=== PATIENT | female | born 2000 | race Two or more races ===

== ENCOUNTER 2024-01-13 01:27 | Inpatient (IN) | payer OTHER ==
[~2024-01-13] VITALS: Ht 162.6 cm; Wt 82.6 kg
[2024-01-13 02:11] LABS: AMNISURE ROM TEST NEGATIVE
[2024-01-13] MEDS ORDERED: OXYTOCIN/DEXTROSE 5% 20 UNITS/100 ML BAG IV SCH (03:00)
[2024-01-13] MEDS ORDERED: CALCIUM CARBONATE 500 MG CHEW PO PRN ×2 (03:00→06:30)
[2024-01-13] MEDS ORDERED: ondansetron HCL 4 MG/2 ML VIAL IV PRN (03:00)
[2024-01-13] MEDS ORDERED: LACTATED RINGER'S 1,000 ML IV PRN (03:00)
[2024-01-13] MEDS ORDERED: MAGNESIUM HYDROXIDE/AL HYDROX 30 ML CUP PO PRN ×2 (03:00→06:30)
[2024-01-13] MEDS ORDERED: LACTATED RINGER'S 1,000 ML IV SCH (03:00)
[2024-01-13 03:01] LABS: HEMATOCRIT 37.2 % (35.0-50.0); MCH 26.5 (27-36); MCHC 32.2 g/dl (30-36); MCV 82.5 fl (81-99); RBC 4.51 M/ul (4.3-5.7); RDW 15.8 (10.5-15.0)
[2024-01-13 03:22] VITALS: BP 143/90
[2024-01-13 03:36] LABS: ABO A; ANTIBODY SCREEN NEGATIVE; RH POSITIVE
[2024-01-13 03:58] LABS: AMPHETAMINES, URINE NEGATIVE (NEGATIVE); BARBITURATES, URINE NEGATIVE (NEGATIVE); BENZODIAZEPINE, URINE NEGATIVE (NEGATIVE); BUPRENORPHINE, URINE NEGATIVE (NEGATIVE); CANNABINOID, URINE NEGATIVE (NEGATIVE); COCAINE, URINE NEGATIVE (NEGATIVE); ECSTASY, URINE NEGATIVE (NEGATIVE); FENTANYL, URINE NEGATIVE (NEGATIVE); METHADONE, URINE NEGATIVE (NEGATIVE); OPIATES, URINE NEGATIVE (NEGATIVE); OXYCODONE, URINE NEGATIVE (NEGATIVE); PHENCYCLIDINE, URINE NEGATIVE (NEGATIVE)
--- NOTE | 2024-01-13 05:40 | PR ---
[facility] [address] [facility] [place], [place] [address] Signed Progress Notes IP Datetime Report Generated by CPLyndsey: 01/13/2024 05:40 PROGRESS NOTES: [id number] Impression: Normal Progression of Labor Procedures: Artificial ROM Plan: Continue Present Management VITAL SIGNS: [id number] Vital Signs: Reviewed; Within Normal Limits EXAM: [id number] Dilatation: 8.0 Effacement: 100 Station: -1 Contractions: q 1 to 2 min MEMBRANES: [id number] Comments: Progressing. AROM done and will continue. FETUS A: [id number] FHR Baseline: 140 Variability: Moderate 6-25bpm Accelerations: 15X15 Decelerations: None FHR Category: Category I Presentation: Vertex Comments on Fetus A: no evidence of metabolic acidosis FETUS B: [id number] Signing Physician: Helena Moran MD Copies: ~ *Electronically Signed* 01/13/24 0540 HELENA MORAN MD PATIENT NAME: SUZANNA SCHWARZ PROGRESS NOTE DATE OF : 01 PHYSICIAN: HELNEA MORAN MD RPT #: [id number] REPORT IS CONFIDENTIAL AND NOT TO BE RELEASED WITHOUT AUTHORIZATION
[2024-01-13] MEDS ORDERED: ACETAMINOPHEN 325 MG TAB PO PRN (06:30)
[2024-01-13] MEDS ORDERED: IBUPROFEN 600 MG TAB PO PRN (06:30)
[2024-01-13] MEDS ORDERED: BENZOCAINE 60 ML AEROSOL TOP PRN (06:30)
[2024-01-13] MEDS ORDERED: HYDROCORTISONE ACETATE 25 MG SUPP PR PRN (06:30)
[2024-01-13] MEDS ORDERED: WITCH HAZEL/GLYCERIN 1 EA PAD TOP PRN (06:30)
[2024-01-13] MEDS ORDERED: MAGNESIUM HYDROXIDE 30 ML UDC PO PRN (06:30)
[2024-01-13] MEDS ORDERED: HYDROCODONE/ACETA 5/325 TAB PO PRN (06:30)
[2024-01-13] MEDS ORDERED: LIDOCAINE 2% VISCOUS 6 ML SYR TOP ONE ×2 (06:30)
[2024-01-13] MEDS ORDERED: OXYTOCIN/0.9 % SODIUM CHLORIDE 500 ML IV SCH (06:30)
[2024-01-13] MEDS ORDERED: SENNOSIDES/DOCUSATE 1 EA TAB PO SCH (09:00)
[2024-01-14 05:22] LABS: HEMATOCRIT 28.2 % (35.0-50.0); HEMOGLOBIN 9.2 g/dL (12.0-18.0); MCHC 32.5 g/dl (30-36); MCV 82.9 fl (81-99); RBC 3.4 M/ul (4.3-5.7); RDW 15.8 (10.5-15.0)
--- NOTE | 2024-01-14 06:39 | PR ---
[facility] [address] [facility] [place], [place] [address] Signed PP Progress Notes Datetime Report Generated by CPN: 01/14/2024 06:38 SUBJECTIVE: [id number] Pain: Within Normal Limits Vital Signs: [id number] Vital Signs: Reviewed; Within Normal Limits EXAM: Ongoing Cardiovascular: Not Done Respiratory: Not Done Abdomen/Uterus: Abnormal Lochia: Normal Vulva/Perineum: Not Done Breasts: Not Done CVA Tenderness: Not Done Extremities: Normal Incision: Not Applicable Progress: Normal Exam Comments: Fundus firm, NT @ U-1. H/H 9.2/28.2, WBC 13.7, plat 202k IMPRESSION/PLAN/PROCEDURES: [id number] Impression: Normal Progression Plan: Discharge Procedures: None Progress Notes: Doing well. She desires discharge. Signing Physician: Helena Moran MD Copies: ~ *Electronically Signed* 01/14/24 0638 HELENA MORAN MD PATIENT NAME: SUZANNA SCHWARZ PROGRESS NOTE DATE OF : 01 PHYSICIAN: HELENA MORAN MD RPT #: [id number] REPORT IS CONFIDENTIAL AND NOT TO BE RELEASED WITHOUT AUTHORIZATION
== END 2024-01-14 12:47 | disposition home or self-care (01) | DRG 807 ==
LOC: FBCO 01:27 → FBC 02:35
PROVIDERS: Obstetrics & Gynecology; ADMIT Obstetrics & Gynecology; ATTEND Obstetrics & Gynecology
PROC: 10E0XZZ Delivery of Products of Conception, External Approach (ICD-10-PCS; principal; 2024-01-13)
PROC: 0KQM0ZZ Repair Perineum Muscle, Open Approach (ICD-10-PCS; 2024-01-13)
PROC: 10907ZC Drainage of Amniotic Fluid, Therapeutic from Products of Conception, Via Natural or Artificial Opening (ICD-10-PCS; 2024-01-13)
DX: O70.1 Second degree perineal laceration during delivery (principal); Z37.0 Single live birth; Z3A.39 39 weeks gestation of pregnancy
CPT/HCPCS: 36415; 80307; 84112; 85027; 86850; 86900; 86901; A9270